=== PATIENT | male | born 1970 | race Hispanic/Latino ===

== ENCOUNTER 2022-01-07 18:36 | Emergency (ER) | payer OTHER ==
[~2022-01-07] VITALS: Ht 162.6 cm; Wt 86.2 kg
[2022-01-07 18:37] VITALS: BP 149/105
== END 2022-01-07 19:22 | disposition home or self-care (01) ==
LOC: EDH 18:36
DX: R05.9 Cough, unspecified (principal); R09.81 Nasal congestion; R07.89 Other chest pain; Z53.21 Procedure and treatment not carried out due to patient leaving prior to being seen by health care provider
CPT/HCPCS: 93005